=== PATIENT | female | born 1985 ===

== ENCOUNTER 2022-05-10 08:52 | Outpatient (CLI) | payer OTHER | END 2022-05-10 11:15 | disposition home or self-care (01) | LOC: PRENATAL 08:52 | PROVIDERS: ATTEND Obstetrics & Gynecology Maternal & Fetal Medicine | DX: O36.80X0 Pregnancy with inconclusive fetal viability, not applicable or unspecified (principal); Z36.0 Encounter for antenatal screening for chromosomal anomalies; O99.340 Other mental disorders complicating pregnancy, unspecified trimester; O09.529 Supervision of elderly multigravida, unspecified trimester; Z3A.13 13 weeks gestation of pregnancy ==

== ENCOUNTER 2022-10-26 12:55 | Inpatient (IN) | payer OTHER ==
[~2022-10-26] VITALS: Ht 157.5 cm; Wt 2.3 kg
[2022-10-26] MEDS ORDERED: OLANZAPINE10 MG (13:31)
[2022-10-26] MEDS ORDERED: FOLIC ACID1 MG PO (13:32)
[2022-10-26] MEDS ORDERED: VALTREX1000 MG PO (13:33)
[2022-10-26] MEDS ORDERED: PRENATAL TABLE1 EAC1 PO (13:33)
== END 2022-10-30 19:36 | disposition home or self-care (01) | DRG 785 ==
LOC: OBS/DEL 12:55 → LDR 17:47 → O/R 10-27 20:06 → OB/GYN 10-27 21:22
PROVIDERS: ADMIT Obstetrics & Gynecology; ATTEND Obstetrics & Gynecology
PROC: BY4FZZZ Ultrasonography of Third Trimester, Single Fetus (ICD-10-PCS; 2022-10-26)
PROC: 4A1HXCZ Monitoring of Products of Conception, Cardiac Rate, External Approach (ICD-10-PCS; 2022-10-26)
PROC: 3E0P7VZ Introduction of Hormone into Female Reproductive, Via Natural or Artificial Opening (ICD-10-PCS; 2022-10-26)
PROC: 0UB70ZZ Excision of Bilateral Fallopian Tubes, Open Approach (ICD-10-PCS; 2022-10-27)
PROC: 3E033VJ Introduction of Other Hormone into Peripheral Vein, Percutaneous Approach (ICD-10-PCS; 2022-10-27)
PROC: 10D00Z1 Extraction of Products of Conception, Low, Open Approach (ICD-10-PCS; principal; 2022-10-27 19:00)
DX: O41.03X0 Oligohydramnios, third trimester, not applicable or unspecified (principal); O36.8130 Decreased fetal movements, third trimester, not applicable or unspecified; O62.1 Secondary uterine inertia; Z3A.38 38 weeks gestation of pregnancy; Z20.822 Contact with and (suspected) exposure to COVID-19; O26.843 Uterine size-date discrepancy, third trimester; Z3A.36 36 weeks gestation of pregnancy; Z37.0 Single live birth; Z30.2 Encounter for sterilization